=== PATIENT | female | born 1955 | race African-American/Black ===

== ENCOUNTER 2024-07-22 11:11 | Emergency (ER) | payer MEDICARE, MEDICAID ==
[~2024-07-22] VITALS: Ht 160 cm; Wt 76.0 kg
[2024-07-22 11:14] VITALS: O2SAT 98
[2024-07-22 11:33] LABS: BASOPHILS % 1.2 % (0.0-2.0); EOSINOPHILS % 1.4 % (0.0-5.0); HEMATOCRIT. 43.4 % (36.0-48.0); LYMPHOCYTES % 25.9 % (20.0-50.0); MEAN CORPUSCULAR HEMOGLOBIN 28.7 pg (28.0-32.0); MEAN CORPUSCULAR HGB CONC 32.3 g/dL (31.0-37.0); MEAN CORPUSCULAR VOLUME 88.9 fL (81.0-99.0); MEAN PLATELET VOLUME 7.3 fl (7.4-10.4); MONOCYTES % 9.9 % (2.0-8.0); NEUTROPHILS % 61.6 % (40.0-76.0); PLATELET 332 x1000/uL (130-400); RED BLOOD CELL COUNT 4.88 mill/uL (4.2-5.4); RED CELL DISTRIBUTION WIDTH 14.7 % (11.6-14.6); WHITE BLOOD COUNT 6.3 x1000/uL (4.5-11.0)
[2024-07-22 11:41] LABS: CHLORIDE 103 mEq/L (98-107); POTASSIUM 4.2 mEq/L (3.5-5.1); SODIUM 139 mEq/L (136-145)
[2024-07-22 11:42] LABS: CARBON DIOXIDE 27 mEq/L (21-32)
[2024-07-22 11:43] LABS: CALCIUM 9.3 mg/dL (8.7-10.4)
[2024-07-22 11:47] LABS: CREATININE 0.6 mg/dL (0.6-1.0)
[2024-07-22 11:48] LABS: GLUCOSE 113 mg/dL (70-105); UREA NITROGEN BLOOD 9 mg/dL (9-23)
[2024-07-22 11:51] LABS: TROPONIN I HIGH SENSITIVITY < 4 ng/L (3.0-34)
[2024-07-22 12:00] VITALS: BP 137/66; PULSE 56; RESP 11; TEMP 36.9; O2SAT 99
== END 2024-07-22 12:14 | disposition left against medical advice (07) ==
LOC: ER 11:11
DX: R07.9 Chest pain, unspecified (principal); Z53.21 Procedure and treatment not carried out due to patient leaving prior to being seen by health care provider
CPT/HCPCS: 36415; 71045; 80048; 84484; 85025; 93005